=== PATIENT | female | born 1990 | race Caucasian/White ===

== ENCOUNTER → 2018-11-07 | Outpatient (CLI) | payer MEDICAID, SELFPAY ==
--- NOTE | 2018-11-07 12:45 | RAD_ITS ---
STUDY: HYSTEROSALPINGOGRAM. REASON FOR EXAM: Female, 28 years old. Infertility. FLUOROSCOPY TIME (if supplied): (0:18) minutes/seconds. 3 images were obtained. TECHNIQUE: A hysterosalpingogram was performed by the upscale security officer. Imaging was provided. COMPARISON: None. FINDINGS: The uterus is unremarkable. Both fallopian tubes are patent and spilling of contrast. RAD/Salpingogram IMPRESSION: Normal hysterosalpingogram. Electronically Signed: Yobani Hughes, at 14:58 EDT , Service support ,
== END | disposition home or self-care (01) ==
LOC: RAD 12:35
PROVIDERS: Referring Provider Obstetrics & Gynecology; Visit Provider Obstetrics & Gynecology
DX: N97.9 Female infertility, unspecified (principal); N80.9 Endometriosis, unspecified
CPT/HCPCS: 58340; 74740; Q9967

== ENCOUNTER 2020-03-25 05:53 | Day surgery (SDC) | payer MEDICAID, SELFPAY ==
--- NOTE | 2020-03-24 09:54 | PCM.HPOB.BLA ---
- Problem List (1) Missed Status: Acute History and Physical Date of Admission: 03/25/20 DATE OF SERVICE: March 24, 2020 ? PROBLEM:?MAB ? DIAGNOSIS:?MAB ? SUBJECTIVE:?Pt having cramping. No VB. Presented today for NT. Ultrasound today shows an intrauterine gestational sac, yolk sac, and pole measuring 8 weeks with no cardiac activity. Here with her .? ? PAST SURGICAL HISTORY:? PAST SURGICAL HISTORY PAST SURGICAL HISTORY Procedure Laterality Date ? EGD ? ? ? x 2, had clip placed per patient for bleeding ulcer ? ENDOSCOPY PROC ? 2017 ? bleeding ulcer ? IVF ARC PACKAGE ? ? ? LAPAROSCOPY & ELECTROFULGURATION ? 03/29/2018 ? Operative laparoscopy, right ovarian cystectomy, left ovarian cyst aspiration, chromotubation, fulguration of endometriosis.? ? PAST MEDICAL HISTORY:? PAST MEDICAL HISTORY PAST MEDICAL HISTORY Diagnosis Date ? Anxiety ? ? not currently on medication for this ? Eating disorder ? ? Encounter for blood transfusion ? ? from bleeding ulcer per patient ? Endometriosis ? ? IBS (irritable bowel syndrome) ? ? Infertility, female ? ? PTSD (post-traumatic stress disorder) ? ? Seizure (HCC) 18 months old ? febrile seizure, no seizures any other time ? Stomach ulcer ? ? SOCIAL HISTORY:? SOCIAL HISTORY Social History ? Tobacco Use ? Smoking status: Never Smoker ? Smokeless tobacco: Never Used Substance Use Topics ? Alcohol use: Not Currently ? ? Comment: occasional ? Drug use: Yes ? ? Types: Marijuana ? ? Comment: pt states she uses this for PTSD and anxiety ? ALLERGIES ALLERGIES No Known Allergies ? Current Outpatient Medications on File Prior to Visit Medication Sig ? Hkgmiidj-Fv-Ubr-Fe-FA ( VITAMIN) tab Take 1 tablet by mouth. ? ESTRADIOL ORAL Take 2 mg by mouth twice daily. ? progesterone, micronized (ENDOMETRIN VAGINAL) Use vaginally. No current facility-administered medications on file prior to visit.? ? OBJECTIVE: ? VITALS:? LMP 01/06/2020? ? HEENT: ?Normocephalic, atraumatic, Mucus membranes moist without lesions. ? NECK: ???Soft and Supple. ?No adenopathy , thyromegaly or bruits. ? SKIN: No lesions. ? CHEST: Clear to auscultation. ?No wheezes or rales. ?Good air exchange. ? HEART: Regular rate and rhythm ?No S3 or S4. ?No gallops or rubs. ? BACK: Nontender with no CVA tenderness. ? ABDOMEN: Soft, non-tender, non-distended, no masses, no hepatosplenomegaly. ? LOWER EXTREMITIES: There was no pitting edema, no palpable cords and no skin changes. ? ? ? ASSESSMENT:?MAB ? PLAN:?Discussed MAB and counseling provided today. Questions answered. Discussed options: expectant management, cytotec, in office suction D&C, suction D&C in OR. Pt desires suction D&C in OR given h/o anxiety and PTSD. Reviewed risks including but not limited today bleeding, need for blood transfusion, infection, uterine perforation, intrauterine adhesions.?The rationale for the proposed surgery was discussed in addition to risks, benefits, and alternatives. ?General pre- and post-operative care was reviewed. ?Questions were answered. ?After discussion, the patient indicated a desire to proceed with the planned surgery. ? Farnaz Abdullahi,?DO
[2020-03-25] VITALS (7 sets, daily range): BP systolic 99–111; BP diastolic 69–83; PULSE 55–81; RESP 12–16; TEMP 36.3–37.7; O2SAT 99–100; BMI 22.2
[2020-03-25 06:11] LABS: Hematocrit 40.3 % (37-47); Hemoglobin 13.5 g/dL (12.0-15.0); Mean Corp Hgb Conc 33.5 g/dL (32-36); Mean Corpuscular Hgb 30.5 pg (27.0-32.0); POSITIVE MORPHOLOGY YES; Platelet Count 201 K/mm3 (150-450); RBC Distribution Width CV 13.2 % (11.6-14.6); RBC Distribution Width SD 43.9 fl (35.1-43.9); Red Blood Count 4.43 M/mm3 (4.2-5.4); White Blood Count 4.4 K/mm3 (4.4-11.0)
[2020-03-25 06:20] LABS: Scan Indicated on CBC? Y/N YES- FLAGS NOTED
[2020-03-25 06:47] LABS: Differential Comment SCANNED
[2020-03-25] MEDS: Lactated Ringers 1,000 ML 100 ML IV (06:54)
--- NOTE | 2020-03-25 07:22 | OP.PCM_ITS ---
Problem List (1) Missed Status: Acute Report of Operation Date of Procedure: 03/25/20 Pre-Operative Diagnosis: MAB at 8 weeks Post-Operative Diagnosis: MAB at 8 weeks Surgery/Procedure Performed:: Suction dilation and curretage Description of Surgical Findings:: Uterus 8 weeks size associate field service engineer: None Type of Anesthesia:: MAC Special Medications: None Specimen's removed: Products of conception Drains: None Estimated Blood Loss (mL): 20 Fluids Replaced: 700 Description of Procedure: Procedure start times: 0740 Procedure stop times: 0750 The patient was taken to the operating room where MAC anesthesia was found to be adequate. She was prepped and draped in the dorsal lithotomy position using yellowfin stirrups. A weighted speculum was placed in the vagina and the cervix was exposed. A single-tooth tenaculum was placed on the anterior lip of the cervix. The cervix was serially dilated to accommodate a size 9 suction curettage. A suction D&C was performed with a size 9 suction curettage with removal of products of conception. Four gentle passes were made with a sharp curettage along each uterine wall for a uterine cry with no return of products of conception. Bleeding was hemostatic. All instruments removed from the vagina. Vaginal sweep was performed. Instrument sponge counts were correct. Patient was taken recovery in stable condition. Grafts/Implants Used: None - Complications None - Admit VTE Documentation VTE Present on Admission: No VTE Mechan Device Prophylaxis: SCD's
--- NOTE | 2020-03-25 07:30 | POC_PTH ---
PATIENT: ASHLEY ALARCON LOC: [facility] [place] U#:[id number] AGE/SX: 29/ ROOM: RE03/25/[address]: Dr. Farnaz Abdullahi, : 1990 BED: DIS: 03/25/2020 SPEC #: [id number] RECD: 03/25/20 10:09 STATUS: ANGELIA JEFF #: [id number] ELANA: 03/25/20 07:[address]: Farnaz Abdullahi DEPT: SURGICAL PATHOLOGY RECD BY: Chrissy Guardado Tissues: Product of conception, NOS Procedures: Surgery Specimen Level IV HEADER OPERATION: Dilation and curettage, suction PRE-OP DIAGNOSIS: Missed TISSUE SUBMITTED: Products of conception MICROSCOPIC DIAGNOSIS Products of conception: Decidua and immature chorionic villi (products of conception). ANKITA:amberly 03/26/20 MICROSCOPIC DESCRIPTION Slides are reviewed. GROSS DESCRIPTION Received in fixative is one container labeled with the patient's name and designated products of conception. The specimen consists of multiple pieces of pink soft tissue that in aggregate measure 6 x 4 x 1.5 cm. tissue is not identified. Legal Receptionist tissue is submitted in two cassettes. / SJ:amberly 03/25/20 TC:5 CPT: 41056
--- NOTE | 2020-03-25 07:51 | DCINST_ITS ---
Discharge Diet: No Restrictions Discharge Activity: May Not Drive - For 24 hours after surgery, May Shower, May Take a Tub Bath - Once the vaginal bleeding stops May resume sexual activity in: 1-2 weeks - Once the vaginal bleeding stops Weight Bearing Status: Weight bearing as tolerated Lifting Restrictions: No restrictions Call your doctor if you observe: Fever of 101 or Higher, Inability to urinate, Inability to have a bowel movement, Using more than one pad per hour, Shortness of breath, Dizziness, Fainting spells, Swelling in the ankles, Chest pain, Increased palpitations (irregular heartbeat), Calf discomfort, Uncontrolled pain Allergies/Adverse Reactions: Allergies No Known Allergies Allergy (Verified 03/24/20 12:08) Medications to take at Discharge Vits [Prenatabs FA] 1 tab PO DAILY 03/24/20 Primary Care Physician: MARI MARTIN [Other] Test Results: Test results from this visit will be discussed in further detail at your follow- up appointment, if applicable. Please Follow Up With: Farnaz Abdullahi DO When: 1-2 weeks
[2020-03-25] MEDS: HYDROcodone Bitartrate/Apap 5/325 Tablet PO (08:38)
== END 2020-03-25 09:45 | disposition home or self-care (01) ==
LOC: SDC 05:55 → AC 05:56
PROVIDERS: Referring Provider Obstetrics & Gynecology; Visit Provider Obstetrics & Gynecology
PROC: (CPT 59820; principal; 2020-03-25 07:15)
DX: O02.1 Missed abortion (principal); Z20.828 Contact with and (suspected) exposure to other viral communicable diseases; K58.9 Irritable bowel syndrome, unspecified; F43.10 Post-traumatic stress disorder, unspecified
CPT/HCPCS: 01965; 59820; 85027; 86850; 86900; 86901; 87426; 88305; C9803; J7050; J7120

== ENCOUNTER 2020-08-05 11:22 | Emergency (ER) | payer MEDICAID, SELFPAY ==
[2020-03-25 06:25] VITALS: BMI 22.2
[2020-08-05 11:23] VITALS: BP 126/80; PULSE 81; RESP 18; TEMP 36.6; O2SAT 100; BMI 22.4
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
--- NOTE | 2020-08-05 11:45 | US_ITS ---
STUDY: FIRST TRIMESTER OBSTETRICAL ULTRASOUND REASON FOR EXAM: Female, 30 years old Abdominal Cramping LMP: 05/20/2020 TECHNIQUE: Transabdominal TECHNICAL QUALITY: Adequate. PRIOR ULTRASOUND: None. FINDINGS: There is visualization of a single gestational sac in a normal intrauterine position. The mean sac diameter (MSD) measures 45 mm, indicating an estimated gestational age (EGA) of 10 weeks, 2 days. The gestational sac shape is within normal limits. There is a visualized yolk sac. The yolk sac measures 3 mm. The placenta is non-visualized. There is visualization of a live embryo. The crown-rump length (CRL) measures 42 mm, indicating an estimated gestational age (EGA) of 11 weeks, 1 days. There is demonstrated cardiac activity with a heart rate of 179 bpm. The estimated gestation age (EGA) by LMP is 11 weeks, 0 days. The estimated date of delivery (INES) by LMP is 02/24/2021. The estimated gestation age (EGA) by US is 10 weeks, 5 days. The estimated date of delivery (INES) by US is 02/26/2021. The uterus measures 9.2 x 7.4 x 6.5 cm. There is no demonstrated uterine fibroid. The cervix is closed. The right ovary measures 2.8 x 3.2 x 2.3 cm. There is no right ovarian cyst. There is no visualized right adnexal mass or complex lesion. The left ovary measures 3.3 x 1.9 x 1.7 cm. There is no left ovarian cyst. There is no visualized left adnexal mass or complex lesion. There is no fluid in the cul de sac. US/Init OB < 14Wks US IMPRESSION: Living intrauterine of 10 weeks 5 days as described above Electronically Signed: Leon Yañez MD at 13:28 EST Tel , Service support ,
== END 2020-08-05 13:59 | disposition home or self-care (01) ==
LOC: ED 11:46
PROVIDERS: Emergency Provider Student in an Organized Health Care Education/Training Program
DX: O26.891 Other specified pregnancy related conditions, first trimester (principal); R10.9 Unspecified abdominal pain; Z3A.11 11 weeks gestation of pregnancy
CPT/HCPCS: 76801; 99282

== ENCOUNTER 2021-02-05 04:45 | Inpatient (IN) | payer MEDICAID, SELFPAY ==
[2021-02-05] VITALS (59 sets, daily range): BP systolic 79–186; BP diastolic 46–85; PULSE 69–120; TEMP 36.4–37.7; O2SAT 96–100; BMI 27.1
[2021-02-05 04:57] LABS: ROM Internal Control Test YES-OK TO RESULT pt. (Internal QC)
[2021-02-05 04:58] LABS: ROM Patient Test POSITIVE (Negative)
[2021-02-05] MEDS: Lactated Ringers 500 ML 999 ML IV ×3 (05:10→23:21)
[2021-02-05 05:18] LABS: Absolute Lymphocyte Count 1.51 X10^3/uL (0.83-4.51); Basophil# 0.03 X10^3/uL; Basophil% 0.2 % (0-1); Eosinophil# 0.06 X10^3/uL; Eosinophils% 0.5 % (0-5); Hematocrit 30.6 % (37-47); Hemoglobin 9.8 g/dL (12.0-15.0); Lymphocyte # 1.51 X10^3/ul (0.83-4.51); Lymphocyte % 12.3 % (19-41); Mean Corpuscular Hgb 25.4 pg (27.0-32.0); Mean Corpuscular Volume 79.3 fL (81-99); Mean Platelet Vol. 12.2 fl (6.2-12.0); Monocyte# 0.56 X10^3/uL; Monocyte% 4.5 % (0-10); NRBC Flagged by Analyzer 0 % (0-5); Neutrophil # 10.02 X10^3/uL (2.7-7.7); Neutrophil % 81.4 % (47-70); POSITIVE MORPHOLOGY YES; Platelet Count 187 K/mm3 (150-450); RBC Distribution Width CV 16.2 % (11.6-14.6); RBC Distribution Width SD 45.9 fl (35.1-43.9); Red Blood Count 3.86 M/mm3 (4.2-5.4); White Blood Count 12.3 K/mm3 (4.4-11.0)
[2021-02-05 05:21] LABS: Bedside Glucose 120 mg/dL (70-110)
[2021-02-05] MEDS: Ondansetron 4 MG/2 ML Vial IV ×2 (05:25→19:37)
[2021-02-05 05:36] LABS: Differential Indicated SCAN CRITERIA MET
[2021-02-05 05:45] LABS: ALB/GLOB Ratio 0.5 RATIO (0.9-2.4); AST(SGOT) 34 U/L (15-37); Alanine Aminotransfer ALT/SGPT 32 U/L (13-56); Albumin, Serum 2.5 g/dL (3.2-5.0); Alkaline Phosphatase 214 U/L (45-117); Anion Gap 11 (5-15); BUN 8 mg/dL (7-18); BUN/Creat Ratio 10.6 RATIO (10-20); Chloride 107 mmol/L (98-107); Creatinine, Serum 0.75 mg/dL (0.55-1.02); EST Glomerular Filtration Rate 95 mL/min (>60); Est Glom Filt Rate - Afr Amer 115 mL/min (>60); Estimated Creatinine Clearance 78.78 ml/min; Globulin 4.7 g/dL (2.2-4.2); Glucose 116 mg/dL (74-106); Potassium 3.3 mmol/L (3.5-5.1); Protein, Total 7.2 g/dL (6.4-8.2); Sodium Level 137 mmol/L (136-145)
[2021-02-05] MEDS: Lactated Ringers 1,000 ML 200 ML IV ×4 (05:45→19:50)
[2021-02-05 06:16] LABS: Amphetamine Urine VISTA NEGATIVE (<1000 ng/mL); Barbiturate Urine VISTA NEGATIVE (< 200 ng/mL); Benzodiazepine Urine VISTA NEGATIVE (< 200 ng/mL); Cocaine Urine VISTA NEGATIVE (< 300 ng/mL); Ecstacy Urine VISTA NEGATIVE (< 500 ng/mL); Methadone Urine VISTA NEGATIVE (< 300 ng/mL); PCP Urine VISTA NEGATIVE (< 25 ng/mL); THC Urine VISTA NEGATIVE (< 50 ng/mL); Vista UDS pH Range 5
[2021-02-05] MEDS: fentaNYL-bupivacaine (epidural) 100 ML BAG EPIDURAL ×5 (06:57→21:54)
[2021-02-05] MEDS: proCHLORPERazine 10 MG/2 ML Vial IV ×2 (07:58→22:32)
[2021-02-05 08:10] LABS: Bedside Glucose 95 mg/dL (70-110)
[2021-02-05] MEDS: Oxytocin 30 units/NS 500 ml 30 UNITS/500 ML IV.SOLN IV (08:46)
--- NOTE | 2021-02-05 09:51 | PCM.HP.OB ---
HPI - General General Date of Admission: 02/05/21 Date of Service: 02/05/21 Chief Complaint: júniorjannette [facility] Narrative ASHLEY ALARCON, 2 para 0-0-1-0 who presents at 37 weeks gestation with EDC C of 02/26/2021 complaining of contractions. She then grossly ruptured when after she arrived to labor and delivery. She denied any gross vaginal bleeding. She had good movement. She had some bloody show. Maternal Data Information Final INES: 02/26/21 Gestational age: 37 0/7 PFSH PFSH Medical History (Updated 02/05/21 @ 09:[address] Kailyn Mathew MD) Anxiety Depression History of blood transfusion Infertility Psychiatric disorder Seizures Home Medications vit,[id number] 1 tab PO DAILY 03/24/20 [History Last Taken 02/03/21 21:00] ferrous sulfate [Slow Fe] 47.5 mg PO QODAY 02/05/21 [History Last Taken Unknown] ursodiol 300 mg PO TID 02/05/21 [History Last Taken 02/04/21 23:30] Allergy/AdvReac Type Severity Reaction Status Date / Time No Known Allergies Allergy Verified 02/05/21 05:07 Surgical History (Updated 02/05/21 @ 05:24 by Monse Jones) History of surgery Social History Smoking Status: Former smoker History Elective abortions Hx Para 0 Spontaneous abortions Hx # Term Pregnancies Ectopic pregnancies Hx # Pregnancies Multiple births # of living children ROS Constitutional Constitutional: Denies fatigue, fever(s) or malaise Eyes Eyes: Denies change in vision ENT HEENT: Denies dizziness or headache(s) Cardiovascular Cardiovascular: Denies chest pain, dyspnea or lightheadedness Respiratory/Chest Respiratory/Chest: Denies cough or dyspnea Gastrointestinal Gastrointestinal: Denies change in bowel habits Genitourinary Genitourinary: Denies burning urination or genital lesions Integumentary Integumentary: Denies rash Neurologic Neurologic: Denies confusion, dizziness, headache(s), numbness or weakness Vital Signs Vital Signs Vital Signs: 02/05/21 04:24 02/05/21 04:27 02/05/21 06:19 Temperature 98.9 F Temperature Source Temporal Pulse Rate 120 H 116 H 99 Blood Pressure 109/76 186/75 H BP Systolic 109 186 BP Diastolic 76 75 Pulse Ox 97 02/05/21 06:23 02/05/21 06:24 02/05/21 06:26 Temperature Temperature Source Pulse Rate 112 H 108 H 106 H Blood Pressure 133/76 H 137/85 H BP Systolic 133 137 BP Diastolic 76 85 Pulse Ox 98 02/05/21 06:29 02/05/21 06:30 02/05/21 06:31 Temperature 97.6 F L Temperature Source Temporal Pulse Rate 101 H 103 H Blood Pressure 140/78 H BP Systolic 140 BP Diastolic 78 Pulse Ox 97 02/05/21 06:35 02/05/21 06:40 02/05/21 06:45 Temperature Temperature Source Pulse Rate 100 92 93 Blood Pressure 123/74 H 120/74 114/74 BP Systolic 123 120 114 BP Diastolic 74 74 74 Pulse Ox 99 02/05/21 06:50 02/05/21 06:55 02/05/21 06:58 Temperature 97.5 F L Temperature Source Pulse Rate 117 H 103 H Blood Pressure 112/69 107/66 BP Systolic 112 107 BP Diastolic 69 66 Pulse Ox 99 100 02/05/21 07:00 02/05/21 07:05 02/05/21 07:10 Temperature Temperature Source Pulse Rate 93 100 100 Blood Pressure 105/68 101/71 110/75 BP Systolic 105 101 110 BP Diastolic 68 71 75 Pulse Ox 100 100 100 02/05/21 07:15 02/05/21 07:16 02/05/21 07:20 Temperature Temperature Source Pulse Rate 99 95 100 Blood Pressure 105/66 97/56 L BP Systolic 105 97 BP Diastolic 66 56 Pulse Ox 100 100 02/05/21 07:25 02/05/21 07:27 02/05/21 07:30 Temperature 98.2 F Temperature Source Temporal Pulse Rate 102 H 91 Blood Pressure 91/55 L 89/53 L BP Systolic 91 89 BP Diastolic 55 53 Pulse Ox 100 100 02/05/21 07:35 02/05/21 07:40 02/05/21 07:47 Temperature Temperature Source Pulse Rate 97 97 95 Blood Pressure 91/53 L BP Systolic 91 BP Diastolic 53 Pulse Ox 100 100 02/05/21 07:48 02/05/21 08:09 02/05/21 08:15 Temperature Temperature Source Pulse Rate 88 77 77 Blood Pressure 88/52 L 79/46 L 86/51 L BP Systolic 88 79 86 BP Diastolic 52 46 51 Pulse Ox 02/05/21 08:20 02/05/21 08:25 02/05/21 08:30 Temperature Temperature Source Pulse Rate 75 77 Blood Pressure 88/53 L 89/53 L 84/52 L BP Systolic 88 89 84 BP Diastolic 53 53 52 Pulse Ox 02/05/21 08:35 02/05/21 08:40 02/05/21 09:23 Temperature 98.2 F Temperature Source Pulse Rate 77 76 Blood Pressure 88/56 L 83/51 L BP Systolic 88 83 BP Diastolic 56 51 Pulse Ox 02/05/21 09:24 Temperature Temperature Source Pulse Rate 77 Blood Pressure 91/55 L BP Systolic 91 BP Diastolic 55 Pulse Ox Weight Weight: 62.9 kg Body Mass Index (BMI) 27.1 Physical Exam Const alert and no apparent distress General Appearance: cooperative HEENT normocephalic Resp normal respiratory effort Cardio regular rate GI soft to palpation GI Narrative: gravid, nontender, appropriate for gestational age Extremity no calf tenderness General Extremity: edema Skin no wounds Rashes: No rashes noted Psych activity/motor behavior normal Labs Labs Labs: Blood Type O POSITIVE Antibody Screen NEGATIVE Hct 30.6 % (37-47) L Hgb 9.8 g/dL (12.0-15.0) L Obstetrics US Assessment & Plan (1) Spontaneous onset of labor: COMMENT: Admitted for labor. Epidural for pain control. Estimated weight is less than 4500 g clinically and pelvis clinically adequate to expect vaginal delivery. Patient had an abnormal 1 hour GCT but did not tolerate the 3-hour. Her hemoglobin A1c and random glucose earlier in the was normal. Do not suspect patient had gestational diabetes. Will check a couple of blood sugars in labor and if normal, will will not monitor further. She has mild antepartum anemia as well. May have epidural as needed for pain control. Pitocin augmentation if needed. (2) Cholestasis during in third trimester: (3) 37 weeks gestation of : (4) Nulliparity:
[2021-02-05] MEDS: DiphenhydrAMINE 50 MG/ML Syringe 25 MG IV (18:36)
[2021-02-05] MEDS: 0.9% Saline Lock 10 ML Syringe IV ×2 (19:38→22:32)
[2021-02-05] MEDS: Acetaminophen 500 MG Tablet PO (22:42)
[2021-02-06] VITALS (27 sets, daily range): BP systolic 98–136; BP diastolic 51–78; PULSE 94–137; RESP 16–28; TEMP 35.9–39.6; O2SAT 94–100
[2021-02-06] MEDS: Lactated Ringers 1,000 ML 200 ML IV (01:33)
--- NOTE | 2021-02-06 03:07 | EX.PCM.OBRPT ---
Assessment & Plan (1) 37 weeks gestation of : (2) Cholestasis during in third trimester: (3) deliv NOS-unsp: (4) Arrest of descent, delivered, current hospitalization: (5) Attempted application of vacuum extractor and forceps: (6) Meconium in amniotic fluid: (7) Maternal fever during labor, antepartum: Maternal Data Information Final INES: 02/26/21 Gestational age: 37 1/7 Details Operative Information Date of Procedure: 02/06/21 Pre-Operative Diagnosis: arrest of descent Post-Operative Diagnosis: same Classification: RUFINA Procedure Type: low transverse kindergarten paraprofessional #1: La Gates Type of Anesthesia: Epidural Anesthesiologist: Chris Mckeon Antibiotic Given: Clindamycin 600mg IV x1 and Gentamicin 1.5mg/kg IV x1 (and Amp) Drain: Nice to straight drain Estimated Blood Loss: 800 Fluids Replaced: 500 Procedure Start Time: 03:35 Procedure Stop Time: 03:37 Time of Delivery: 04:05 Findings Description of Procedure: I arrived assessed patient. She had suspected AAA and had been started on antibiotics for maternal and tachycardia. She also had a maternal fever. She was exhausted and despite multiple techniques of pushing and coaching, had not made significant descent. There is a small amount of caput. Position was SHERYL. Pelvis is clinically adequate. Nice was in place. Anesthesia was adequate. Risk benefits alternatives to attempted vacuum-assisted vaginal delivery were discussed with the patient, her questions were answered and she desired to proceed. The vacuum was placed on the flexion point and vacuum created to 550 mmHg. I pulled with 3 pulls and 2 pop-off. I difficulty maintaining the vacuum because of the caput. At this point delivery was not imminent, and station had only progressed from 0 station to +2 station. I discussed with patient indication to proceed with section. She was consented and the OR team was called and readied. Patient was then transferred to the operating room. She was prepped and draped in the dorsal supine position with a leftward tilt. A Pfannenstiel skin incision was made approximately 2 cm above the symphysis pubis and carried through to underlying layer fascia with the scalpel. The fascia was incised incised in the midline and extended laterally with blunt dissection. The fascia was dissected off the rectus muscles with blunt and sharp dissection. The rectus muscles were in the midline and the peritoneum was entered bluntly. The peritoneal incision was stretched and the bladder blade was placed. The uterine incision was made in a low transverse fashion with the scalpel and extended superiorly and inferiorly with blunt dissection. The amniotic membranes were ruptured bluntly and clear amniotic fluid returned. The 's head was brought to the incision in the flexed position and delivered without difficulty. The remainder of the infant was delivered with gentle traction and fundal pressure in the standard fashion. The mouth and nares were bulb suctioned. The cord was clamped and cut as the was stimulated. Cord clamping was not delayed as the infant was not initially vigorous. The was handed off to the waiting nursing staff. The placenta was delivered with fundal massage and gentle traction in the standard fashion. The uterus was exteriorized and cleared of all clots and debris. The uterine incision was closed with #1 Vicryl in a running locked fashion. A second layer of the same suture was used in an imbricating fashion. The incision was examined and was found to be hemostatic. The uterus was placed back into the peritoneal cavity and hemostasis was again confirmed. The rectus muscles were examined and any bleeding was Bovie cauterized. The surgical teams outer gloves were then changed. The parietal peritoneum and rectus muscles were closed en bloc with an 0 Vicryl running suture. The rectus fascia was examined and any bleeding was Bovie cauterized and the rectus fascia was closed with 1 Vicryl suture in a running standard fashion. The subcutaneous tissue was examining and any bleeding was Bovie cauterized. The subcutaneous tissue was reapproximated with 3-0 Vicryl suture. The skin was closed in a subcuticular fashion by the TREASURY MANAGEMENT SALES CONSULTANT with me present in the labor and delivery suite. I performed the remainder of the procedure with assistance. The TREASURY MANAGEMENT SALES CONSULTANT also provided tissue retraction, fundal pressure, and visualization assistance. All sponge, lap, and needle counts were correct. The patient was taken to her room for recovery in a stable condition. Presentation: Positive for Vertex Amniotic Fluid Description: Thick meconium (Initially clear, progressed to thick meconium) Placental Delivery Description: Expressed Specimen(s) Sent to Pathology: placenta Cord Vessel Description: 3 Vessels Cord Entanglement: None Cord Gases: ABG and VBG A Gender: Male (Beau) (1 minute): 2 (5 minute): 7 (10 min was 8) Delayed Cord Clamping: No Complications Complications: none Admit VTE Documentation VTE Present on Admission: No VTE Mechan Device Prophylaxis: SCD's VTE Pharm Prophylaxis Ordered: Yes
[2021-02-06] MEDS: Sodium Citrate/Citric Acid 30 ML UDC PO (03:13)
--- NOTE | 2021-02-06 03:30 | PLAC_PTH ---
PATIENT: ASHLEY ALARCON LOC: [facility] U#:[id number] AGE/SX: 30/F ROOM: [facility] RE02/05/[address]: Dr. Kailyn Mathew MD : 1990 BED: 1 DIS: 02/09/2021 SPEC #: [id number] RECD: 02/06/21 05:11 STATUS: ANGELIA REJohn #: [id number] ELANA: 02/06/21 03:[address]: Kailyn Mathew DEPT: SURGICAL PATHOLOGY RECD BY: Chrissy Guardado ENTERED: 02/07/21 08:58 SP TYPE: PLACENTA OTHR DR: No Primary Care Phys Tissues: Placenta, NOS Procedures: Surgery Specimen Level V HEADER OPERATION: Primary section PRE-OP DIAGNOSIS: Maternal fever, suspect chorioamnionitis TISSUE SUBMITTED: Placenta MICROSCOPIC DIAGNOSIS Placenta: Placental disc - third trimester placenta (547 gm). - Focal areas of intraparenchymal hemorrhage (largest measuring 1.5 cm in greatest dimension. - Focal acute vasculitis of subamniotic blood vessels. Membranes ? marked acute chorioamnionitis. - Pigment-laden macrophages consistent with meconium staining. Umbilical cord - three blood vessels and marked acute funisitis. SJ:amberly 02/08/2021 MICROSCOPIC DESCRIPTION Slides are reviewed. GROSS DESCRIPTION SPECIMEN: PLACENTA / CLINICAL INFORMATION: A. Weight: 2.73 kg B. Gestational Age: 37 weeks C. Sex: Male PLACENTAL WEIGHT (POST FIXATION): 547 gm PLACENTAL DIMENSIONS: 15 x 16 x 3 cm PLACENTAL SHAPE: Usual ovoid PLACENTAL WEIGHT FOR GESTATIONAL AGE: > 99th percentile MEMBRANES - Present A. Insertion: Marginal B. Site of rupture from edge: 6 cm from edge of placental disc C. Color of membrane: Sebastian-greenish and mucoidy, consistent with meconium staining D. Abnormalities: None UMBILICAL CORD - Present A. Color: Sebastian-zaragoza B. Insertion: Marginal C. Length: 34 cm D. Diameter: 1 cm E. Number of vessels: Three F. Abnormalities: None PLACENTAL DISC - Present A. Color of surface: Sebastian-zaragoza B. surface abnormalities: None C. Maternal cotyledons: Intact with minimal tears D. Attached retro placental clot: No clot E. Cut surface: Dark red and spongy F. Lesions: Sections reveal five sebastian, indurated lesions, the largest measuring 1.5 cm in greatest dimension. G. Separate clot: Absent SECTIONS SUBMITTED: 1. Membrane roll 2. Cord, maternal end, lesion 3. Cord, end, lesion 4. Placental disc, and maternal surfaces, lesion 5. Placental disc, and maternal surfaces, largest lesion 6. Placental disc, and maternal surfaces, lesion SJ:amberly 02/07/21 TC:2 CPT: 30175
[2021-02-06] MEDS: Oxytocin 30 units/NS 500 ml 30 UNITS/500 ML IV.SOLN 167 UNITS IV (04:35)
[2021-02-06] MEDS: Ketorolac 30 MG/ML Syringe IV ×4 (05:21→23:12)
[2021-02-06] MEDS: 0.9% Saline Lock 10 ML Syringe IV ×4 (05:22→23:12)
[2021-02-06] MEDS: Acetaminophen 500 MG Tablet 1000 MG PO ×3 (07:00→19:26)
[2021-02-06] MEDS: Lactated Ringers 1,000 ML 100 ML IV (07:52)
[2021-02-06] MEDS: Enoxaparin 40 MG/0.4 ML Syringe SC (09:46)
[2021-02-06] MEDS: Senna/Docusate Sodium 1 Tablet PO (09:47)
[2021-02-06 12:52] LABS: Absolute Lymphocyte Count 0.95 X10^3/uL (0.83-4.51); Absolute Neutrophil Count 18.3 X10^3/uL (2.0-7.7); Basophil# 0.01 X10^3/uL; Hematocrit 22.5 % (37-47); Hemoglobin 7.1 g/dL (12.0-15.0); Lymphocyte # 0.95 X10^3/ul (0.83-4.51); Lymphocyte % 4.7 % (19-41); Mean Corp Hgb Conc 31.6 g/dL (32-36); Mean Corpuscular Hgb 25.3 pg (27.0-32.0); Mean Corpuscular Volume 80.1 fL (81-99); Mean Platelet Vol. 12.9 fl (6.2-12.0); Monocyte# 0.68 X10^3/uL; Monocyte% 3.4 % (0-10); NRBC Flagged by Analyzer 0 % (0-5); Neutrophil % 91.3 % (47-70); POSITIVE MORPHOLOGY YES; Platelet Count 149 K/mm3 (150-450); RBC Distribution Width CV 16.7 % (11.6-14.6); RBC Distribution Width SD 47.4 fl (35.1-43.9); Red Blood Count 2.81 M/mm3 (4.2-5.4); White Blood Count 20.1 K/mm3 (4.4-11.0)
[2021-02-06 13:32] LABS: Differential Indicated SCAN CRITERIA MET
[2021-02-06 13:53] LABS: Differential Comment SCANNED
[2021-02-07 00:56] VITALS: BP 111/63; PULSE 79; RESP 16; TEMP 35.7; O2SAT 97
[2021-02-07] MEDS: Acetaminophen 500 MG Tablet 1000 MG PO ×4 (01:05→19:53)
[2021-02-07 04:16] VITALS: BP 101/66; PULSE 88; RESP 16; TEMP 36; O2SAT 96
[2021-02-07 04:36] LABS: Hemoglobin 6.8 g/dL (12.0-15.0); Mean Corp Hgb Conc 32.4 g/dL (32-36); Mean Corpuscular Hgb 25.5 pg (27.0-32.0); Mean Corpuscular Volume 78.7 fL (81-99); Mean Platelet Vol. 12.6 fl (6.2-12.0); Platelet Count 150 K/mm3 (150-450); RBC Distribution Width CV 16.5 % (11.6-14.6); RBC Distribution Width SD 46.6 fl (35.1-43.9); Red Blood Count 2.67 M/mm3 (4.2-5.4)
[2021-02-07] MEDS: Naproxen 500 MG Tablet PO ×3 (05:23→21:25)
[2021-02-07 08:00] VITALS: BP 121/81; PULSE 98; RESP 16; TEMP 36.2; O2SAT 97
--- NOTE | 2021-02-07 08:25 | PCM.HP.OB ---
HPI - General General Date of Admission: 02/05/21 PFS PFS Medical History (Updated 02/07/21 @ 08:[address] Farnaz Abdullahi DO) Anxiety Depression History of blood transfusion Infertility Psychiatric disorder Seizures Home Medications vit,[id number]-maic-defgn 1 tab PO DAILY 03/24/20 [History Last Taken 02/03/21 21:00] ferrous sulfate [Slow Fe] 47.5 mg PO QODAY 02/05/21 [History Last Taken Unknown] ursodiol 300 mg PO TID 02/05/21 [History Last Taken 02/04/21 23:30] Allergy/AdvReac Type Severity Reaction Status Date / Time No Known Allergies Allergy Verified 02/05/21 05:07 Surgical History (Updated 02/07/21 @ 08:[address] Farnaz Abdullahi, ) History of surgery Social History Smoking Status: Former smoker History Elective abortions Hx Para 0 Spontaneous abortions Hx # Term Pregnancies Ectopic pregnancies Hx # Pregnancies Multiple births # of living children Labs Labs Labs: Blood Type O POSITIVE Antibody Screen NEGATIVE Hct 26.7 % (37-47) L Hgb 8.7 g/dL (12.0-15.0) L Obstetrics US Rhogam given: No
--- NOTE | 2021-02-07 08:26 | PN.OBGYN_ITS ---
Subjective Subjective Pt doing well. Having some pain and discomfort, but controlled and able to get out of bed and ambulate. Oscar reg diet without nausea or vomiting. Ambulating without difficulty. Denies lightheadedness, dizziness, SOB. Lochia normal. No leg pain. Formula feeding. Objective Data Objective Data Vital Signs: Vital Signs Temp Pulse Resp BP Pulse Ox 96.8 F L 88 16 101/66 96 02/07/21 04:16 02/07/21 04:16 02/07/21 04:16 02/07/21 04:16 02/07/21 04:16 Oxygen Delivery Method Room Air Weight: 138 lb 10.732 oz Body Mass Index (BMI) 27.1 Intake & Output: Intake and Output for Last 24 Hours 02/05/21 02/06/21 02/07/21 23:59 23:59 23:59 Intake Total 5104.87 / 5104.87 1552.10 / 1552.10 Output Total 1200 / 1200 1550 / 1550 Balance 3904.87 / 3904.87 2.10 / 2.10 Lab / Micro Data Result Diagrams: 02/07/21 04:25 02/05/21 05:10 Labs: Laboratory Results - last 24 hr 02/06/21 12:25: WBC 20.1 H, RBC 2.81 L, Hgb 7.1 L, Hct 22.5 L, MCV 80.1 L, MCH 25.3 L, MCHC 31.6 L, RDW Std Deviation 47.4 H, RDW Coeff of Afshan 16.7 H, Plt Count 149 L, MPV 12.9 H, Immature Gran % (Auto) 0.600, Neut % (Auto) 91.3 H, Lymph % (Auto) 4.7 L, [place] % (Auto) 3.4, Eos % (Auto) 0.0, Baso % (Auto) 0.0, Absolute Neuts (auto) 18.3 H, Absolute Lymphs (auto) 0.95, Nucleated RBC % 0, Differential Comment SCANNED 02/07/21 04:25: WBC 19.0 H, RBC 2.67 L, Hgb 6.8 L, Hct 21.0 L, MCV 78.7 L, MCH 25.5 L, MCHC 32.4, RDW Std Deviation 46.6 H, RDW Coeff of Afshan 16.5 H, Plt Count 150, MPV 12.6 H Micro: Microbiology 02/05/21 05:15 Nasal Secretion SARS-CoV-2 Antigen (Rapid) - Final Physical Exam Const alert and no apparent distress General Appearance: comfortable GI soft to palpation and non-distended Extremity normal to inspection and no calf tenderness Assessment & Plan (1) Maternal fever during labor, antepartum: PLAN: - Last fever 02/06/21 around 2AM. Patient did not receive IV antibiotics for 24 hours after last fever. Will continue IV antibiotics today and then discontinue at 2AM. Pt denies fevers or chills. Monitor for further fevers and monitor WBC (2) Arrest of descent, delivered, current hospitalization: (3) deliv NOS-unsp: COMMENT: - Doing well post op. Encourage ambulation and IS use. Routine post op care (4) Cholestasis during in third trimester: COMMENT: - Will check LFT's in AM with CBC (5) Postoperative anemia: PLAN: - Hgb stable this morning. Pt denies any symptoms of anemia. She was anemic pre op as well. Will give 1 dose of IV iron today. CBC in AM
[2021-02-07] MEDS: Lactated Ringers 1,000 ML 200 ML IV (09:53)
[2021-02-07] MEDS: 0.9% Saline Lock 10 ML Syringe IV ×2 (09:55→15:33)
[2021-02-07] MEDS: Senna/Docusate Sodium 1 Tablet PO (10:01)
[2021-02-07] MEDS: Enoxaparin 40 MG/0.4 ML Syringe SC (10:01)
[2021-02-07 14:00] VITALS: BP 124/80; PULSE 84; RESP 16; TEMP 36.4; O2SAT 98
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
[2021-02-07] MEDS: oxyCODONE 5 MG Tablet PO (18:50)
[2021-02-07 21:13] VITALS: BP 121/75; PULSE 83; RESP 18; TEMP 36.1
[2021-02-08] VITALS (10 sets, daily range): BP systolic 115–135; BP diastolic 78–93; PULSE 63–88; RESP 16–18; TEMP 36.1–36.5; O2SAT 96–98
[2021-02-08] MEDS: Acetaminophen 500 MG Tablet 1000 MG PO ×4 (00:43→19:43)
[2021-02-08] MEDS: Naproxen 500 MG Tablet PO ×3 (05:31→20:55)
[2021-02-08 05:46] LABS: Absolute Lymphocyte Count 1.91 X10^3/uL (0.83-4.51); Absolute Neutrophil Count 14.1 X10^3/uL (2.0-7.7); Basophil# 0.04 X10^3/uL; Basophil% 0.2 % (0-1); Eosinophils% 1.7 % (0-5); Hematocrit 19.6 % (37-47); Hemoglobin 6.4 g/dL (12.0-15.0); Lymphocyte # 1.91 X10^3/ul (0.83-4.51); Mean Corp Hgb Conc 32.7 g/dL (32-36); Mean Corpuscular Hgb 25.7 pg (27.0-32.0); Mean Corpuscular Volume 78.7 fL (81-99); Mean Platelet Vol. 11.9 fl (6.2-12.0); Monocyte% 2.9 % (0-10); NRBC Flagged by Analyzer 0.2 % (0-5); Neutrophil # 14.12 X10^3/uL (2.7-7.7); Neutrophil % 81.3 % (47-70); Platelet Count 191 K/mm3 (150-450); RBC Distribution Width CV 16.7 % (11.6-14.6); RBC Distribution Width SD 47.2 fl (35.1-43.9); Red Blood Count 2.49 M/mm3 (4.2-5.4); White Blood Count 17.4 K/mm3 (4.4-11.0)
[2021-02-08 06:05] LABS: ALB/GLOB Ratio 0.4 RATIO (0.9-2.4); AST(SGOT) 33 U/L (15-37); Alanine Aminotransfer ALT/SGPT 23 U/L (13-56); Albumin, Serum 1.5 g/dL (3.2-5.0); Alkaline Phosphatase 159 U/L (45-117); Anion Gap 8 (5-15); BUN 9 mg/dL (7-18); BUN/Creat Ratio 10.3 RATIO (10-20); Calcium,Total 8.3 mg/dL (8.5-10.1); Chloride 109 mmol/L (98-107); Creatinine, Serum 0.87 mg/dL (0.55-1.02); EST Glomerular Filtration Rate 81 mL/min (>60); Est Glom Filt Rate - Afr Amer 97 mL/min (>60); Estimated Creatinine Clearance 67.92 ml/min; Globulin 3.6 g/dL (2.2-4.2); Glucose 88 mg/dL (74-106); Potassium 3.2 mmol/L (3.5-5.1); Protein, Total 5.1 g/dL (6.4-8.2); Sodium Level 138 mmol/L (136-145)
[2021-02-08] MEDS: Enoxaparin 40 MG/0.4 ML Syringe SC (09:26)
[2021-02-08] MEDS: Senna/Docusate Sodium 1 Tablet PO (09:26)
--- NOTE | 2021-02-08 11:03 | PN.OBGYN_ITS ---
Subjective Subjective Patient seen at bedside. Resting comfortably in bed. Patient had episode of dizziness and feeling weak while ambulating today and needed assisted back into bed. HGB. today 6.4. Discussed transfusion of 2 units with patient and she consented. Will repeat CBC 4 hours after infusion. Breast and bottle feeding . Voiding and passing flatus. Anticipate discharge home tomorrow. Objective Data Objective Data Vital Signs: Vital Signs Temp Pulse Resp BP Pulse Ox 97.4 F L 88 16 115/78 97 02/08/21 08:00 02/08/21 08:00 02/08/21 08:00 02/08/21 08:00 02/08/21 08:00 Oxygen Delivery Method Room Air Weight: 138 lb 10.732 oz Body Mass Index (BMI) 27.1 Intake & Output: Intake and Output for Last 24 Hours 02/06/21 02/07/21 02/08/21 23:59 23:59 23:59 Intake Total 1552.10 / 1552.10 1010.25 / 1010.25 Output Total 1550 / 1550 250 / 250 Balance 2.10 / 2.10 1010.25 / 1010.25 -250 / -250 Lab / Micro Data Result Diagrams: 02/08/21 05:30 02/08/21 05:30 Labs: Laboratory Results - last 24 hr 02/08/21 05:30: WBC 17.4 H, RBC 2.49 L, Hgb 6.4 L, Hct 19.6 L, MCV 78.7 L, MCH 25.7 L, MCHC 32.7, RDW Std Deviation 47.2 H, RDW Coeff of Afshan 16.7 H, Plt Count 191, MPV 11.9, Immature Gran % (Auto) 2.900 H, Neut % (Auto) 81.3 H, Lymph % (Auto) 11.0 L, [place] % (Auto) 2.9, Eos % (Auto) 1.7, Baso % (Auto) 0.2, Absolute Neuts (auto) 14.1 H, Absolute Lymphs (auto) 1.91, Nucleated RBC % 0.2 02/08/21 05:30: Sodium 138, Potassium 3.2 L, Chloride 109 H, Carbon Dioxide 21.0, Anion Gap 8, BUN 9, Creatinine 0.87, Estim Creat Clear Calc 67.92, Est GFR (MDRD) Af Amer 97, Est GFR (MDRD) Non-Af 81, BUN/Creatinine Ratio 10.3, Glucose 88, Calcium 8.3 L, Total Bilirubin 0.90, AST 33, ALT 23, Alkaline Phosphatase 159 H, Total Protein 5.1 L, Albumin 1.5 L, Globulin 3.6, Albumin/Globulin Ratio 0.4 L 02/08/21 09:25: Blood Type O POSITIVE, Antibody Screen NEGATIVE, Crossmatch See Detail Micro: Microbiology 02/05/21 05:15 Nasal Secretion SARS-CoV-2 Antigen (Rapid) - Final ROS Eyes Eyes: Denies blurry vision, change in vision or spots in vision Cardiovascular Cardiovascular: Denies abdominal pain, chest pain or dyspnea Respiratory/Chest Respiratory/Chest: Denies cough, dyspnea, shortness of breath at rest or shortness of breath with exertion Gastrointestinal Gastrointestinal: Denies abdominal pain, diarrhea or vomiting Genitourinary Genitourinary: Denies change in urinary stream, difficulty urinating or dysuria Musculoskeletal Musculoskeletal: Reports none Integumentary Integumentary: Denies rash Neurologic Neurologic: Reports as per HPI, dizziness and weakness Physical Exam Narrative Dressing is dry and intact Const alert and no apparent distress General Appearance: cooperative and comfortable Exam Limitations: no limitations HEENT normocephalic Eyes General Eye: normal appearance of both eyes Neck full ROM General: normal visual inspection Chest Chest: symmetrical chest wall rise Resp normal respiratory effort and normal air movement Effort and Inspection: symmetric chest movement Auscultation: clear to auscultation bilaterally Cardio regular rate and regular rhythm GI normal to inspection, nondistended, normoactive bowel sounds Back/Spine normal ROM Extremity full ROM and no calf tenderness General Extremity: normal exam except as noted Skin no rashes or lesions noted Neuro CN's II-XII intact bilaterally Psych mental status grossly normal Assessment & Plan (1) Postoperative anemia: (2) deliv NOS-unsp: COMMENT: - Doing well post op. Encourage ambulation and IS use. Routine post op care PLAN: POD 2 primary C/S Postoperative anemia- CBC 6.4 2 units PRBCs to be transfused Repeat CBC 4 hours after infusion complete [place] screen today 17- Start Zoloft 25 mg PO daily then to increase to Zoloft 50 mg PO after 1 week Anticipate discharge home tomorrow
[2021-02-08] MEDS: oxyCODONE 5 MG Tablet PO ×2 (12:05→22:29)
[2021-02-08] MEDS: 0.9% Saline Lock 10 ML Syringe IV ×2 (13:25→14:39)
[2021-02-08 15:22] LABS: Pathology Specimen OB SEE PATHOLOGY REPORT
--- NOTE | 2021-02-08 16:15 | CASEMGMT ---
ocial Work Labor and Delivery Unit Referral to [facility] at [phone], and spoke with Daphney. Referral due to substance exposed infant to marijuana in utero. Brief maternal and histories provided, including negative drug screens at delivery. Pending meconium. Plan: MOB and baby discharging home with the FOB, and to have family support. MOB established with counseling already, and has resource information for [facility]. [facility] Me Grow referral will be made. Monitor for meconium drug screen results. -BESSIE Moses, SANDWICH BOARD CARRIER
[2021-02-08 21:57] LABS: Hematocrit 26.7 % (37-47); Hemoglobin 8.7 g/dL (12.0-15.0); Mean Corp Hgb Conc 32.6 g/dL (32-36); Mean Corpuscular Hgb 26.3 pg (27.0-32.0); Mean Corpuscular Volume 80.7 fL (81-99); Mean Platelet Vol. 11.5 fl (6.2-12.0); POSITIVE COUNT YES; POSITIVE MORPHOLOGY YES; Platelet Count 221 K/mm3 (150-450); RBC Distribution Width CV 16.8 % (11.6-14.6); RBC Distribution Width SD 47.8 fl (35.1-43.9); Red Blood Count 3.31 M/mm3 (4.2-5.4); White Blood Count 15.3 K/mm3 (4.4-11.0)
[2021-02-08 22:21] LABS: Differential Indicated MANUAL DIFF
[2021-02-08] MEDS: Sertraline 50 MG Tablet 25 MG PO (22:27)
[2021-02-08 22:44] LABS: Eosinophil 2 % (0-5); Lymphocyte 9 % (19-41); Metamyelocyte 3 % (0-1); Monocyte 3 % (0-10); Myelocyte 4 % (0-0); Neutrophil-Band 5 % (0-5); Neutrophil-Segmented 74 % (47-70); Total Cells Counted 100 (MANUAL DIFF)
[2021-02-08 22:48] LABS: Absolute Lymphocyte Count 1.37 X10^3/uL (0.83-4.51); Absolute Neutrophil Count 12.1 X10^3/uL (2.0-7.7); Anisocytosis RARE; Hypochromasia RARE; Microcytosis RARE; Platelet Estimate ADEQUATE (ADEQ); Red Cell Morphology N CHROM NORMAL (NORM C&C)
[2021-02-09] MEDS: Acetaminophen 500 MG Tablet 1000 MG PO ×2 (02:30→09:12)
[2021-02-09 02:35] VITALS: BP 120/75; PULSE 74; RESP 16; TEMP 35.8; O2SAT 95
[2021-02-09] MEDS: Naproxen 500 MG Tablet PO (04:58)
--- NOTE | 2021-02-09 09:04 | PN.OBGYN_ITS ---
Objective Data Objective Data Vital Signs: Vital Signs Temp Pulse Resp BP Pulse Ox 96.4 F L 74 16 120/75 95 02/09/21 02:35 02/09/21 02:35 02/09/21 02:35 02/09/21 02:35 02/09/21 02:35 Oxygen Delivery Method Room Air Weight: 138 lb 10.732 oz Body Mass Index (BMI) 27.1 Intake & Output: Intake and Output for Last 24 Hours 02/07/21 02/08/21 02/09/21 23:59 23:59 23:59 Intake Total 1010.25 / 1010.25 580.75 / 580.75 Output Total 250 / 250 Balance 1010.25 / 1010.25 330.75 / 330.75 Lab / Micro Data Result Diagrams: 02/08/21 21:45 02/08/21 05:30 Labs: Laboratory Results - last 24 hr 02/08/21 09:25: Blood Type O POSITIVE, Antibody Screen NEGATIVE, Crossmatch See Detail 02/08/21 21:45: WBC 15.3 H, RBC 3.31 L, Hgb 8.7 L, Hct 26.7 L, MCV 80.7 L, MCH 26.3 L, MCHC 32.6, RDW Std Deviation 47.8 H, RDW Coeff of Afshan 16.8 H, Plt Count 221, MPV 11.5, Neut % (Auto) Not Reportable, Absolute Neuts (auto) 12.1 H, Absolute Lymphs (auto) 1.37, Total Counted 100, Neutrophils % (Manual) 74 H, Band Neutrophils % 5, Lymphocytes % (Manual) 9 L, Monocytes % (Manual) 3, Eosinophils % (Manual) 2, Metamyelocytes % 3 H, Myelocytes % 4 H, Diff Path Review May foll, Platelet Estimate ADEQUATE, RBC Morphology N CHROM, H ypochromasia RARE, Anisocytosis RARE, Microcytosis RARE Micro: Microbiology 02/05/21 05:15 Nasal Secretion SARS-CoV-2 Antigen (Rapid) - Final ROS Constitutional Constitutional: Reports systems reviewed and no addt'l complaints, except as documented; Denies headache(s) Eyes Eyes: Denies acute decrease in peripheral vision, blurry vision or change in vision ENT HEENT: Reports systems reviewed and no addt'l complaints, except as documented Cardiovascular Cardiovascular: Denies chest pain or dizziness Respiratory/Chest Respiratory/Chest: Denies cough, dyspnea, dyspnea on exertion, shortness of breath at rest or shortness of breath with exertion Gastrointestinal Gastrointestinal: Denies abdominal pain, diarrhea, nausea or vomiting Genitourinary Genitourinary: Denies abdominal discomfort Musculoskeletal Musculoskeletal: Denies limited range of motion Integumentary Integumentary: Reports systems reviewed and no addt'l complaints, except as documented Neurologic Neurologic: Reports systems reviewed and no addt'l complaints, except as documented Psychiatric Psychiatric: Reports systems reviewed and no addt'l complaints, except as documented Endocrine Endocrinology: Reports systems reviewed and no addt'l complaints, except as documented Hematologic/Lymphatic Hematologic/Lymphatic: Reports systems reviewed and no addt'l complaints, except as documented Allergic/Immunologic Allergic/Immunologic: Reports systems reviewed and no addt'l complaints, except as documented Physical Exam Const alert and oriented x3 General Appearance: cooperative Orientation / Consciousness: awake, oriented to person, oriented to place and oriented to time Exam Limitations: no limitations HEENT normocephalic Head and Scalp: normal to inspection, normocephalic and atraumatic Face and Sinus: normal facial exam Eyes General Eye: normal appearance of both eyes Neck full ROM Chest Chest: symmetrical chest wall rise Resp normal respiratory effort and normal air movement Auscultation: clear to auscultation bilaterally Cardio regular rate, regular rhythm, S1 normal heart sound, S2 normal heart sound, no murmurs, no rub, no gallops and no clicks GI normal to inspection, nondistended, normoactive bowel sounds GI Narrative: Incision dressing dry and intact. Abdomen appropriately tender. Fundus firm 3 below U appearance of the vagina normal Bladder / Kidney Exam: no CVA tenderness Back/Spine normal ROM Extremity normal to inspection and full ROM Extremity Narrative: No edema. Dorothy's negative bilaterally Skin no rashes or lesions noted Neuro oriented x3, CN's II-XII intact bilaterally and moves all extremities Sensorium / Orientation: awake, alert and oriented to person Motor Exam: clonus absent Deep Tendon Reflexes: Rt Patellar (L4): 2+ and Lt Patellar (L4): 2+ Assessment & Plan (1) Maternal fever during labor, antepartum: (2) deliv NOS-unsp: COMMENT: - Doing well post op. Encourage ambulation and IS use. Routine post op care (3) Arrest of descent, delivered, current hospitalization: (4) Cholestasis during in third trimester: COMMENT: - Will check LFT's in AM with CBC (5) Postoperative anemia: PLAN: 1) Hgb 6.4 to 8.7 after 2 units PRBCs. Ferrous Sulfate 325mg PO once daily every other day. 2) Triple I during labor, antibiotics completed. WBC decreased and asymptomatic 3) Pain controlled. Oxycodone 5mg PO once daily Rx 4) Colace for stool softener 5) EPDS 17. Patient seen by VERONA Moses MSW 2 days ago and recommended patient be started on medication prior to discharge. Patient with history of m ental health disorder and overdose on benzos. No treatment in last 6 years or suicide attempts. Denies any SI/HI or thoughts of harming self or others. No history of bipolar disorder for self or family, no manic episodes. Discussed with patient will continue Zoloft 25mg PO once daily for one week then increase to 50 mg PO once daily. To make appointment with counselor in the next week and to find psychiatric provider for drug management. Resources provided. Patient to message office once she has these appointments. Will follow up in 2 weeks. present today and good support for patient. 6) Discharge home, follow up in 2 weeks for virtual visit and 6 weeks in office. 7) Declines LARC
[2021-02-09] MEDS: oxyCODONE 5 MG Tablet PO (09:13)
--- NOTE | 2021-02-09 11:09 | DS.PCM_ITS ---
Providers Date of Admission: 02/05/21 Primary Care Physician: No Primary Care Phys Reason For Visit: PRIMARY C SECTION Diagnosis Discharge Diagnosis (1) Maternal fever during labor, antepartum: Status: Acute Code(s): O75.2 - Pyrexia during labor, not elsewhere classified (2) deliv NOS-unsp: Status: Acute (3) Arrest of descent, delivered, current hospitalization: Status: Acute Code(s): O62.1 - Secondary uterine inertia (4) Cholestasis during in third trimester: Status: Acute Code(s): O26.613 - Liver and biliary tract disorders in , third trimester; K83.1 - Obstruction of bile duct (5) Postoperative anemia: Status: Acute Code(s): D64.9 - Anemia, unspecified Medications at Discharge Home Medications vit,[id number] 1 tab PO DAILY 03/24/20 ferrous sulfate [Slow Fe] 47.5 mg PO QODAY 02/05/21 ursodiol 300 mg PO TID 02/05/21 Weight / BMI Weight Weight: 138 lb 10.732 oz Body Mass Index (BMI) 27.1 ABG / Lab / Microbiology Data Result Diagrams: 02/08/21 21:45 02/08/21 05:30 Laboratory: Laboratory Results - last 24 hr 02/08/21 09:25: Blood Type O POSITIVE, Antibody Screen NEGATIVE, Crossmatch See Detail 02/08/21 21:45: WBC 15.3 H, RBC 3.31 L, Hgb 8.7 L, Hct 26.7 L, MCV 80.7 L, MCH 26.3 L, MCHC 32.6, RDW Std Deviation 47.8 H, RDW Coeff of Afshan 16.8 H, Plt Count 221, MPV 11.5, Neut % (Auto) Not Reportable, Absolute Neuts (auto) 12.1 H, Absolute Lymphs (auto) 1.37, Total Counted 100, Neutrophils % (Manual) 74 H, Band Neutrophils % 5, Lymphocytes % (Manual) 9 L, Monocytes % (Manual) 3, Eosinophils % (Manual) 2, Metamyelocytes % 3 H, Myelocytes % 4 H, Diff Path Review May foll, Platelet Estimate ADEQUATE, RBC Morphology N CHROM, Hypochromasia RARE, Anisocytosis RARE, Microcytosis RARE Microbiology: Microbiology 02/05/21 05:15 Nasal Secretion SARS-CoV-2 Antigen (Rapid) - Final Meaningful Use Info Meaningful Use Diagnoses (Choose all that apply): VTE VTE Anticoag overlap given w/in hospital stay or rx'd at dc?: Yes Pt receive overlap for 5 days?: No Reason overlap not ordered, prescribed, or given for 5 days: Procedure Not Indicated Discharge Plan Admission Admit Date/Time: 02/05/21 04:45 Primary Reason for Your Visit: Primary Section Attending Provider: Kailyn Mathew Primary Care Provider: Care Physician,No Primary Instructions Patient Instructions: Breast Care After , After a , Iron Supplements, Understanding Depression, : Caring for Yourself, C Section Dc Additional Instructions / Restrictions: Prescriptions sent to pharmacy through [facility] for Naproxen, zoloft, and oxycodone. Discharge Orders/Prescriptions Prescriptions: No Action vit,[id number] 1 TABLET tablet 1 tab PO DAILY RF: 0 ursodiol 300 mg Capsule 300 mg PO TID RF: 0 Slow Fe 47.5 mg iron Tablet Extended Release 47.5 mg PO QODAY RF: 0 Referrals / Follow Up: Farnaz Abdullahi DO [STAFF PHYSICIAN] - (Follow up in 2 weeks for virtual visit and 6 weeks for PP visit. Make appointment with counselor in then next 1-2 weeks and psychiatry appointment in the next month. Resources sent to her [facility]. ) Care Physician,No Primary [Primary Care Provider] - Disposition Disposition (needs filled in before D/C Order can be placed): Home, Self Care
[2021-02-09] MEDS: Enoxaparin 40 MG/0.4 ML Syringe SC (12:45)
[2021-02-09] MEDS: Senna/Docusate Sodium 1 Tablet PO (12:46)
[2021-02-09 13:42] LABS: Pathologist Review Reviewed
--- NOTE | 2021-02-16 11:07 | CASEMGMT ---
Social Work Labor and Delivery unit Help me grow referral submitted through the [facility] assisted care web-based referral system. Continue to monitor for meconium drug screen results. Otherwise, no other services requested or indicated. -BESSIE Moses, [employer] DEVELOPER. *This note was generated with [employer] dictation software. It may contain incorrect words, spelling, and punctuation that were not noted in review of the chart prior to signing*
--- NOTE | 2021-03-07 11:56 | CASEMGMT ---
Social Work Labor and Delivery unit Meconium drug screen results at that and negative for any drugs of abuse. No further referrals indicated. -BESSIE Moses, SCALLOP CUTTER
== END 2021-02-09 13:05 | disposition home or self-care (01) | DRG 540 ==
LOC: WPOUT 04:46 → WP 04:46
PROVIDERS: Obstetrics & Gynecology; Admitting Provider Obstetrics & Gynecology; Visit Provider Obstetrics & Gynecology
DX: O62.1 Secondary uterine inertia (principal); O26.62 Liver and biliary tract disorders in childbirth; K71.0 Toxic liver disease with cholestasis; D64.9 Anemia, unspecified; O75.2 Pyrexia during labor, not elsewhere classified; O66.5 Attempted application of vacuum extractor and forceps; O77.0 Labor and delivery complicated by meconium in amniotic fluid; Z37.0 Single live birth; Z3A.37 37 weeks gestation of pregnancy; Z87.891 Personal history of nicotine dependence; O99.02 Anemia complicating childbirth
CPT/HCPCS: 59025; 59050; 80053; 80307; 82962; 84112; 85025; 85027; 86850; 86900; 86901; 86920; 86922; 87426; 88307; 99218; 99251; J7040; J7050; J7120; P9016; A4216; G0378; G0463; J2405; J2916; J3490

== ENCOUNTER 2022-03-19 21:17 | Emergency (ER) | payer MEDICAID, SELFPAY ==
[2022-03-19 21:17] VITALS: BP 117/86; PULSE 97; RESP 18; TEMP 35.6; O2SAT 97; BMI 27.3
--- NOTE | 2022-03-19 22:02 | US_ITS ---
STUDY: ULTRASOUND TRANSVAGINAL CLINICAL: Female, 31 years old. severe left pelvic pain, ov cyst, eval for torsion LMP 02/25/2022. TECHNIQUE: Transvaginal COMPARISON: None. FINDINGS: UTERUS: 7.7 cm length. Normal configuration. ENDOMETRIUM: Not thickened. OVARIES: Right ovary: 4.1 x 3.6 x 2.3 x 3.6 cm. Rounded hypoechoic likely complex cystic structure 2 x 1.7 x 1.9 cm. Left ovary: 4.2 x 2.4 x 2.9 cm. Complex cystic structure 2.2 x 1.1 x 1.3 cm. Vascular flow demonstrated in both ovaries. No findings to suggest ovarian torsion. FREE FLUID: None. US/Transvaginal Non- IMPRESSION: Right ovarian 2 cm complex cyst likely hemorrhagic cyst. Left ovary 2.2 cm complex cyst likely partially collapsed hemorrhagic cyst. Electronically Signed: Kandice Bello MD at 0:09 EDT ,
--- NOTE | 2022-03-19 22:04 | ED.VIS.GI ---
HPI HPI - GI History of Present Illness Chief Complaint: Abd Pain Informant: patient Abdominal Pain/Flank Pain Context: Gradual Onset Timing: Intermittent (Continuous today) Quality: Aching Location: - (Pelvis bilateral, radiating to low back bilateral) Current Severity: Severe Maximum Severity: Severe Worsened by: Nothing Relieved by: Nothing Nausea/Vomiting/Emesis GI Symptom: Positive for Nausea and Vomiting Diarrhea/Melena/Hematochezia GI Symptom: Negative for Diarrhea, Melena or Hematochezia Associated Symptoms Associated Symptoms: Negative for Dysuria, Frequency, Hematuria or Urgency Narrative Narrative: Patient has a history of chronic pelvic pain as well as endometriosis. She states the pain is intermittent, she has been having this episode of intermittent pain for the past month. Seems to be bilateral in her pelvis and radiating into her low back. Today it is worse and constant. It usually is intermittent lasting for half an hour or an hour may be more. She states the nature of the pain is the same. She states 1 week ago she had an ultrasound by her STUDENT DEVELOPMENT ADVISOR in the office, she states she had an endometrioma on 1 side of her pelvis and a bleeding ovarian cyst on the other side, she cannot remember which was which, but she states the cyst was 4 cm or more she thinks but is not sure. [facility] Medical History Anxiety Depression History of blood transfusion Infertility Ovarian cyst Psychiatric disorder Seizures Home Medications levonorgestrel-ethinyl estradiol 0.1 mg-20 mcg tablet 1 tab PO DAILY 03/19/22 [History Last Taken Unknown] naproxen 500 mg tablet 500 mg PO PRN PRN Pain 03/19/22 [History Last Taken Unknown] Allergy/AdvReac Type Severity Reaction Status Date / Time No Known Allergies Allergy Verified 03/19/22 21:17 Surgical History (Updated 02/07/21 @ 08:[address] Farnaz Abdullahi DO) History of surgery Social History Smoking Status: Former smoker ROS ROS ED Constitutional Constitutional ED: Denies chills or fever(s) Eyes Eyes: Denies change in vision or diplopia ENT ENT ED: Denies rhinorrhea or sore throat Cardiovascular Cardiovascular: Denies chest pain or palpitations Respiratory/Chest Respiratory/Chest: Denies cough or dyspnea Gastrointestinal Gastrointestinal: Reports abdominal pain, nausea and vomiting; Denies diarrhea Genitourinary Genitourinary ED: Denies dysuria or hematuria Musculoskeletal Musculoskeletal: Reports back pain; Denies neck pain Integumentary Denies abscess or rash Neurologic Neurologic: Denies headache(s), paresthesias or weakness Psychiatric Psychiatric: Denies anxiety or suicidal thoughts EXAM Physical Exam Const Vital Signs: 03/19/22 21:17 Temperature 96.1 F L Temperature Source Temporal Pulse Rate 97 Respiratory Rate 18 Blood Pressure 117/86 H Blood Pressure Mean 96 Pulse Ox 97 Positive well nourished and well developed General Appearance ED: well developed and NAD HEENT Reports moist mucous membranes normocephalic and atraumatic Eyes PERRL and EOMs intact bilaterally Neck full ROM and supple Resp normal respiratory effort and clear to auscultation bilaterally Cardio regular rate, regular rhythm and no murmurs GI non-distended GI Narrative: Moderate-severe left pelvic tenderness, less tender in the suprapubic area. No guarding or rebound. No other areas of tenderness. Auscultation: normoactive bowel sounds Palpation: soft Back/Spine no CVA tenderness General Back: other FROM Extremity normal to inspection General Extremety ED: Negative for edema, pulses abnormal or tenderness General Extremity: Negative for edema or pulses abnormal Neuro oriented x3, CN's II-XII intact bilaterally and no sensory deficits noted Sensorium / Orientation: awake and alert Motor Exam: strength 5/5 throughout Skin no rashes or lesions noted and no wounds MDM MDM MDM Narrative Medical decision making narrative: Patient clearly has a chronic component to all of this along with endometriosis and she has had a laparoscopy to diagnose that. Still has both of her ovaries and tubes. Reviewed her records and the ultrasound must of been done in the office at [facility], I have no record of it or note. She presents at nighttime. Therefore I think she needs an ultrasound to rule out torsion. Also controlled her pain here with analgesics and Zofran. That helped. test negative, ultrasound confirms good blood flow, she apparently has only 2 cm cysts, and appears that they are both hemorrhagic, 1 on each side. Patient is discharged to follow-up. Lab Data Attestation: I reviewed the patient's lab results. Labs: Laboratory Results - last 24 hr 03/19/22 22:13 Urine Color Yellow Urine Clarity Clear Urine pH 5.0 Ur Specific [place] 1.025 Urine Protein 30 H Urine Glucose (UA) Normal Urine Ketones 5 H Urine Occult Blood Negative Urine Nitrite Negative Urine Bilirubin Negative Urine Urobilinogen 1 H Ur Leukocyte Esterase 25 H Urine RBC 0 SEEN Urine WBC 0 SEEN Ur Squamous Epith Cells 0 SEEN Urine Bacteria 0 SEEN Urine Mucus 0 SEEN Urine Test Negative Radiography Diagnostic Testing: Clinical Impression(s) from Imaging Studies Transvaginal US 03/19/22 22:02 IMPRESSION: Right ovarian 2 cm complex cyst likely hemorrhagic cyst. Left ovary 2.2 cm complex cyst likely partially collapsed hemorrhagic cyst. Electronically Signed: Kandice Bello MD at 0:09 EDT , Discharge Plan Triage Chief Complaint: Abd Pain ED Provider: Ryley Cosby Dx/Rx/DC Orders Clinical Impression: Hemorrhagic cysts of both ovaries, Acute pain in female pelvis, Chronic pain in female pelvis, Endometriosis Instructions: ED Ovarian Cyst Prescriptions: No Action levonorgestrel-ethinyl estrad [[place]] 0.1-20 mg-mcg tablet 1 tab PO DAILY Label Comments: TAKE 1 TABLET BY MOUTH ONCE DAILY. SKIP THE PLACEBO TO TAKE THE CONTROL CONTINUOUSLY. naproxen 500 mg tablet 500 mg PO PRN PRN (Reason: Pain) Label Comments: PLEASE SEE ATTACHED FOR DETAILED DIRECTIONS Primary Care Provider: Farnaz Abdullahi Referrals: Farnaz Abdullahi DO [Primary Care Provider] - 3-5 Days if not improving Disposition Disposition: Home, Self Care
[2022-03-19] MEDS: morphine 10 MG/ML Syringe 8 MG IM (22:16)
[2022-03-19] MEDS: Ondansetron ODT 4 MG Tablet 8 MG PO (22:16)
[2022-03-19 22:25] LABS: Bacteria 0 SEEN /hpf (None Seen); Color, Urine Yellow (Yellow); Glucose, Dipstick Normal (Normal); Ketone-Dipstick 5 mg/dl (Negative); Leukocyte Esterase-Dipstick 25 /ul (Negative); Mucous, Urine 0 SEEN /hpf (<or=2+); Nitrite-Dipstick Negative (Negative); Occult Blood-Urine Negative /ul (Negative); Protein-Dipstick 30 mg/dl (Negative); Red Blood Cells-Urine 0 SEEN /hpf (0-5); Specific Gravity, Urine 1.025 (1.002-1.030); Squamous Epithelial Cells - UA 0 SEEN /hpf (5-10); Urine Bilirubin Dipstick Negative (Negative); Urine Clarity Clear (Clear); Urine Urobilinogen 1 mg/dl (Normal); White Blood Cells 0 SEEN /hpf (0-5)
[2022-03-19 23:41] LABS: Internal QC Validated? YES +Cl - CLEAR BKGD; Pregnancy, Urine Negative Negative
[2022-03-20 00:48] VITALS: BP 112/79; BP 117/79; PULSE 77; RESP 18; TEMP 36.8; O2SAT 95
== END 2022-03-20 00:49 | disposition home or self-care (01) ==
PROVIDERS: Emergency Provider Emergency Medicine; PCP Obstetrics & Gynecology; Visit Provider Emergency Medicine
DX: N83.201 Unspecified ovarian cyst, right side (principal); N83.202 Unspecified ovarian cyst, left side; R10.2 Pelvic and perineal pain; G89.29 Other chronic pain; N80.9 Endometriosis, unspecified; Z87.891 Personal history of nicotine dependence
CPT/HCPCS: 76830; 81001; 81025; 93976; 96372; 99283